=== PATIENT | female | born 2000 | race Hispanic/Latino ===

== ENCOUNTER 2020-09-26 10:11 | Emergency (ER) | payer OTHER, MEDICAID ==
[2020-09-26 11:51] LABS: #Basophils 0.1 10x3/uL (0.0-0.2); #Monocytes 0.4 10x3/uL (0.0-1.1); #Neutrophils 6.6 10x3/uL (1.5-8.4); %Basophils 0.5 % (0.0-2.0); %Eosinophils 0.1 % (0.0-6.0); %Lymphocytes 31.9 % (18.0-47.0); %Monocytes 4.2 % (0.0-10.0); %Neutrophils 62.3 % (40.0-75.0); Hemoglobin 10.3 g/dL (12.0-15.5); Mean Corpuscular HGB CONC 32.6 g/dL (32.0-36.0); Mean Corpuscular Hemoglobin 29.3 pg (27.0-33.0); Mean Platelet Volume 9.6 fl (7.4-10.4); Platelet Count 338 10x3/uL (150-450); RBC Distribution Width 13.8 % (11.5-14.5); Red Blood Cell (RBC) Count 3.51 10x6/uL (3.90-5.03); White Blood Cell (WBC) Count 10.6 10x3/uL (3.5-10.5)
[2020-09-26 11:59] LABS: ALT (SGPT) 38 U/L (8-55); AST (SGOT) 19 U/L (5-34); Albumin 3.7 g/dL (3.5-5.0); Alkaline Phosphatase 88 U/L (40-110); Anion Gap 14 mmol/L (10-20); BUN (Urea Nitrogen) 4 mg/dL (7.0-18.7); Bilirubin, Total 0.2 mg/dL (0.2-1.2); Calc. Creatinine Clearance 0 mL/min (70-130); Calcium 8.6 mg/dL (7.8-10.44); Carbon Dioxide 19 mmol/L (22-29); Chloride 107 mmol/L (98-107); Globulin 3.5 g/dL (2.4-3.5); Glucose 94 mg/dL (70-105); Lipase 34 U/L (8-78); Potassium 3.7 mmol/L (3.5-5.1); Protein, Total 7.2 g/dL (6.0-8.3); Sodium 136 mmol/L (136-145)
[2020-09-26 12:22] LABS: Bilirubin Neg (Negative); Blood, Urine Negative (Negative); Clarity Slightly Cloudy (Clear); Glucose, Urine (Dipstick) Normal (Negative); Ketone, Urine 5 mg/dL (Negative); Leukocyte 500 (Negative); Nitrite Negative (Negative); Protein, Urine (Dipstick) Negative (Neg-Trace); Specific Gravity, Urine 1.005 (1.002-1.036); Urobilinogen Normal mg/dL (Less than 2)
[2020-09-26 12:38] LABS: Bacteria/HPF 1+ HPF (None Seen); RBC/HPF 0-3 HPF (0-3)
== END 2020-09-26 14:16 | disposition home or self-care (01) ==
LOC: CSHERS 10:11
DX: O99.891 Other specified diseases and conditions complicating pregnancy (principal); R10.32 Left lower quadrant pain; Z3A.17 17 weeks gestation of pregnancy
CPT/HCPCS: 36415; 76815; 80053; 81003; 81015; 83690; 85025

== ENCOUNTER 2021-02-14 10:33 | Outpatient (CLI) | payer OTHER ==
[2021-02-15 21:31] LABS: SARS-CoV-2 PCR by NAA DETECTED (NotDetected)
== END 2021-02-14 10:34 | disposition home or self-care (01) ==
LOC: CSHLAB 10:33
PROVIDERS: ATTEND Family Medicine
DX: U07.1 COVID-19 (principal)
CPT/HCPCS: U0003; U0005

== ENCOUNTER 2024-08-07 08:50 | Emergency (ER) | payer SELFPAY ==
[2024-08-07 09:29] LABS: #Basophils 0.04 10x3/uL (0.0-0.2); #Eosinophils 0.18 10x3/uL (0.0-0.5); #Monocytes 0.47 10x3/uL (0.0-1.1); #Neutrophils 4.51 10x3/uL (1.5-8.4); %Basophils 0.5 % (0.0-2.0); %Eosinophils 2.3 % (0.0-6.0); %Lymphocytes 32.8 % (18.0-47.0); Hematocrit 37.4 % (34.9-44.5); Hemoglobin 12.3 g/dL (12.0-15.5); Mean Corpuscular HGB CONC 32.9 g/dL (32.0-36.0); Mean Corpuscular Hemoglobin 29.8 pg (27.0-33.0); Mean Corpuscular Volume 90.6 fL (81.6-98.3); Mean Platelet Volume 10.2 fL (7.4-10.4); Platelet Count 298 10x3/uL (150-450); RBC Distribution Width 12.5 % (11.5-14.5); Red Blood Cell (RBC) Count 4.13 10x6/uL (3.90-5.03); White Blood Cell (WBC) Count 7.78 10x3/uL (3.5-10.5)
[2024-08-07 09:30] LABS: Bilirubin Neg (Negative); Blood, Urine Negative (Negative); Clarity Clear (Clear); Glucose, Urine (Dipstick) Normal (Negative); Ketone, Urine Negative (Negative); Leukocyte Negative (Negative); Nitrite Negative (Negative); Protein, Urine (Dipstick) Negative (Neg-Trace); Specific Gravity, Urine 1.015 (1.005-1.030); Urobilinogen Normal mg/dL (Less than 2)
[2024-08-07 09:47] LABS: ALT (SGPT) 14 U/L (Less than 34); AST (SGOT) 16 U/L (11-34); Alkaline Phosphatase 56 U/L (40-110); Anion Gap 12 mmol/L (10-20); BUN (Urea Nitrogen) 7 mg/dL (7.0-18.7); Bilirubin, Total 0.2 mg/dL (0.3-1.2); Calc. Creatinine Clearance 0 mL/min (70-130); Calcium 8.9 mg/dL (7.8-10.44); Carbon Dioxide 20 mmol/L (22-29); Chloride 107 mmol/L (98-107); Estimated GFR 134; Globulin 3.4 g/dL (2.4-3.5); Glucose 87 mg/dL (70-105); Protein, Total 7.4 g/dL (6.0-8.3); Sodium 135 mmol/L (136-145)
[2024-08-07 09:48] LABS: CAUTI Indications for Culture Pregnancy; RBC/HPF None Seen HPF (0-3); WBC/HPF 0-3 HPF (0-3)
[2024-08-07 09:49] LABS: Bacteria/HPF Rare-Few HPF (None Seen)
[2024-08-07 09:50] LABS: Urine Culture Reflex Yes Yes
== END 2024-08-07 10:01 | disposition home or self-care (01) ==
LOC: CSHERS 08:50
DX: O20.0 Threatened abortion (principal); Z3A.01 Less than 8 weeks gestation of pregnancy
CPT/HCPCS: 76856; 80053; 81001; 84702; 85025; 87086

== ENCOUNTER 2025-02-01 08:58 | Emergency (ER) | payer OTHER ==
[2025-02-01] MEDS ORDERED: Acetaminophen 500 MG TAB ONE (10:55)
[2025-02-01 12:01] LABS: Glucose, Urine (Dipstick) Normal (Negative); Leukocyte Negative (Negative); Protein, Urine (Dipstick) 15 mg/dl (Neg-Trace); Specific Gravity, Urine 1.020 (1.005-1.030)
[2025-02-01 13:58] LABS: Bacteria/HPF 1+ HPF (None Seen); CAUTI Indications for Culture Dysuria,urgency,freq; WBC/HPF 0-3 HPF (0-3)
[2025-02-01 14:00] LABS: Urine Culture Reflex No No
== END 2025-02-01 12:42 | disposition home or self-care (01) ==
LOC: CSHERS 08:58
DX: O99.891 Other specified diseases and conditions complicating pregnancy (principal); J02.8 Acute pharyngitis due to other specified organisms; B97.89 Other viral agents as the cause of diseases classified elsewhere; Z3A.35 35 weeks gestation of pregnancy
CPT/HCPCS: 81001; 87081; 87428; 87430; 99283

== ENCOUNTER 2025-02-28 05:23 | Inpatient (IN) | payer OTHER ==
[2025-02-28 05:48] VITALS: BMI 33.2
[2025-02-28] MEDS ORDERED: Oxytocin 30 units/NS 500 ML 500 ML IV SCH (06:18)
[2025-02-28] MEDS ORDERED: Methylergonovine 0.2 MG/ML VIAL IM PRN (06:18)
[2025-02-28] MEDS ORDERED: hydrALAZINE 20 MG/ML VIAL SLOW IVP PRN ×2 (06:18→09:57)
[2025-02-28] MEDS ORDERED: Acetaminophen 500 MG TAB PO PRN (06:18)
[2025-02-28] MEDS ORDERED: Bicitra 30 ML UDCUP PO PRN (06:18)
[2025-02-28] MEDS ORDERED: Carboprost 250 MCG/ML AMP IM PRN (06:18)
[2025-02-28] MEDS ORDERED: Famotidine/PF 20 mg/2ml Vial SLOW IVP PRN (06:18)
[2025-02-28] MEDS ORDERED: Diphenoxylate HCl/Atropine Tablet PO PRN (06:18)
[2025-02-28] MEDS ORDERED: Ondansetron PF 4 MG/2 ML Vial IVP PRN ×3 (06:18→08:15)
[2025-02-28 06:27] LABS: Hematocrit 35.0 % (34.9-44.5); Hemoglobin 12.0 g/dL (12.0-15.5); Mean Corpuscular Hemoglobin 29.7 pg (27.0-33.0); Mean Corpuscular Volume 86.6 fL (81.6-98.3); Platelet Count 250 10x3/uL (150-450); Red Blood Cell (RBC) Count 4.04 10x6/uL (3.90-5.03); White Blood Cell (WBC) Count 7.95 10x3/uL (3.5-10.5)
[2025-02-28 06:56] LABS: Hep B Surf Ag - L&D Non-Reactive S/CO (NonReactive)
[2025-02-28 06:57] LABS: Syphilis Antibody Index 0.07 S/CO (<1.00 Non-Reactive)
[2025-02-28] MEDS ORDERED: Meperidine HCl/PF 25 MG (1 mL) VIAL SLOW IVP PRN (08:15)
[2025-02-28] MEDS ORDERED: Communication Order-Pharmacy FS SCH (08:15)
[2025-02-28] MEDS ORDERED: HYDROmorphone 0.5 MG/0.5 ML SYRINGE SLOW IVP PRN (08:15)
[2025-02-28] MEDS ORDERED: Lanolin Ointment 7 GM TUBE TOP PRN (09:57)
[2025-02-28] MEDS ORDERED: Acetaminophen 325 MG TAB PO PRN (09:57)
[2025-02-28] MEDS ORDERED: Bisacodyl 10 MG SUPP PR PRN (09:57)
[2025-02-28] MEDS ORDERED: Simethicone Chewable 80 MG TAB PO PRN (09:57)
[2025-02-28] MEDS: Ketorolac Tromethamine 30 MG (1 mL) VIAL IVP SCH (11:01)
[2025-02-28] MEDS: Oxytocin 10 UNITS/ML VIAL ONE (15:14)
[2025-02-28] MEDS: PHENYLEPHRINE-NS 100 MCG/ML 10 ML SYRINGE ONE (15:14)
[2025-02-28] MEDS: Ondansetron PF 4 MG/2 ML Vial ONE (15:14)
[2025-02-28] MEDS: Boostrix 0.5 ML (Tdap) VIAL (>/=7 yrs of age) IM ONE (15:15)
[2025-02-28] MEDS: Ketorolac Tromethamine 30 MG (1 mL) VIAL IVP PRN (17:19)
[2025-03-01] MEDS: diphenhydrAMINE 50 MG/ML VIAL IVP PRN (04:14)
[2025-03-01 06:06] LABS: Hematocrit 32.1 % (34.9-44.5); Hemoglobin 10.5 g/dL (12.0-15.5); Mean Corpuscular Hemoglobin 29.2 pg (27.0-33.0); Mean Corpuscular Volume 89.2 fL (81.6-98.3); Platelet Count 205 10x3/uL (150-450); Red Blood Cell (RBC) Count 3.60 10x6/uL (3.90-5.03); White Blood Cell (WBC) Count 8.79 10x3/uL (3.5-10.5)
[2025-03-01] MEDS: Ferrous Sulfate 325 MG TAB PO SCH (07:38)
[2025-03-01] MEDS: HYDROcodone/Acetaminophen 5/325 mg Tablet PO PRN ×2 (13:41→20:18)
[2025-03-01] MEDS: Ibuprofen 800 MG TAB PO SCH (13:41)
[2025-03-02 08:26] VITALS: TEMP 97.7
[2025-03-02 12:04] VITALS: BP 106/68
== END 2025-03-02 12:30 | disposition home or self-care (01) | DRG 788 ==
LOC: CSHLD 05:23 → CSHPED 13:15
PROVIDERS: ADMIT Family Medicine; ATTEND Family Medicine
PROC: 10D00Z1 Extraction of Products of Conception, Low, Open Approach (ICD-10-PCS; principal; 2025-02-28)
DX: O34.219 Maternal care for unspecified type scar from previous cesarean delivery (principal); E03.9 Hypothyroidism, unspecified; O99.284 Endocrine, nutritional and metabolic diseases complicating childbirth; Z37.0 Single live birth; Z3A.39 39 weeks gestation of pregnancy; Z79.82 Long term (current) use of aspirin; Z79.899 Other long term (current) drug therapy
CPT/HCPCS: 36415; 51702; 85027; 86780; 86850; 86900; 86901; 87340; J1200; J1885; J2274; J2590